=== PATIENT | female | born 1950 | race Caucasian/White ===

== ENCOUNTER → 2016-10-14 | Outpatient (CLI) | payer BC ==
[~2016-10-14] MED LIST: ALLDSR60 PO; ASPEC81 PO; ASPI81TA28 PO; ATV/1 PO; ATV1 PO; CHOL100010 PO; CHOL1TAB42 PO; CYCL0.05 OP; CYCL0.052 OP; FEXO1TAB46 PO; FLNIN NAE; FLUO20CA35 PO; FLUO40CA8 PO; FLUT0.15 NAE; GLUC1CAP32 PO; INDSR/60 PO; LISI-725 PO; METH750T PO; MONT1TAB3 PO; MULT-506 PO; MULT-663 PO; OXYC1TAB3 PO; PANT40TA PO; PROP60CA5 PO; PRZC/10 PO; RIZA10TA19 PO; RXC5 PO; SUMA6KIT SQ; TOPI200T14 PO; TOPI25TA99 PO; [UNRECOGNIZED DRUG - CODE] PO
[2016-10-14 14:54] LABS: ESTIMATED AVERAGE GLUCOSE 117 mg/dl; HA1C FLAG Normal (Normal)
[2016-10-14 14:57] LABS: ALT/SGPT 27 U/L (12-78); AST/SGOT 13 U/L (15-37); BLOOD UREA NITROGEN 17 mg/dl (7-18); BUN/CREATININE RATIO 17.4 (10-20); CALCIUM 9.2 mg/dl (8.5-10.1); CARBON DIOXIDE 24 mmol/L (21-32); CHLORIDE 107 mmol/L (98-107); CREATININE 0.98 mg/dl (0.60-1.20); GLUCOSE 105 mg/dl (70-99); POTASSIUM 4.1 mmol/L (3.5-5.1); SODIUM 141 mmol/L (136-145)
[2016-10-14 15:00] LABS: ALKALINE PHOSPHATASE 93 U/L (45-117); CHOLESTEROL 212 mg/dl (0-200); CHOLESTEROL/HDL RATIO 2.8; HDL CHOLESTEROL 76 mg/dl; LDL CHOLESTEROL CALCULATED 112 mg/dl; TRIGLYCERIDES 120 mg/dl (0-150); VERY LOW DENSITY LIPOPROT CALC 24 mg/dl
== END | disposition home or self-care (01) ==
LOC: C.LAB1850 12:34
PROVIDERS: ATTEND Family Medicine
DX: E55.9 Vitamin D deficiency, unspecified (principal); E78.5 Hyperlipidemia, unspecified; R73.9 Hyperglycemia, unspecified; M26.609 Unspecified temporomandibular joint disorder, unspecified side

== ENCOUNTER → 2016-11-01 | Outpatient (CLI) | payer BC ==
--- NOTE | 2016-11-01 13:06 | DIAGNOSTIC IMAGING REPORT ---
RIGHT LOWER EXTREMITY VENOUS DOPPLER CLINICAL HISTORY: Right calf pain. COMPARISON STUDY: Right lower extremity venous Doppler September 08, 2012. TECHNIQUE: Sonography of the deep venous system of the right lower extremity was performed. Compression and augmentation were evaluated. FINDINGS: The right common femoral, superficial femoral and popliteal veins were compressible. Augmentation was normal. Flow was shown within the deep calf vessels. IMPRESSION: No evidence of deep venous thrombus within the right lower extremity. Electronically signed by: Abbe Jaime M.D. 11/01/2016 1:05 PM Dictated Date/Time: 11/01/2016 1:05 PM
== END | disposition home or self-care (01) ==
LOC: C.ULTR 12:06
PROVIDERS: ATTEND Family Medicine
DX: M79.669 Pain in unspecified lower leg (principal)

== ENCOUNTER → 2017-05-07 | Outpatient (CLI) | payer BC ==
[~2017-05-07] MED LIST changes: -ALLDSR60 PO; -ASPEC81 PO; -ATV1 PO; -CHOL100010 PO; -CYCL0.05 OP; -FLNIN NAE; -FLUO20CA35 PO; -PANT40TA PO; -PROP60CA5 PO; -PRZC/10 PO; -RXC5 PO; -[UNRECOGNIZED DRUG - CODE] PO
[2017-05-07 13:56] LABS: ALT/SGPT 21 U/L (12-78); BLOOD UREA NITROGEN 12 mg/dl (7-18); BUN/CREATININE RATIO 12.7 (10-20); CARBON DIOXIDE 25 mmol/L (21-32); CHLORIDE 111 mmol/L (98-107); CHOLESTEROL 204 mg/dl (0-200); CREATININE 0.95 mg/dl (0.60-1.20); GLUCOSE 100 mg/dl (70-99); POTASSIUM 3.9 mmol/L (3.5-5.1); SODIUM 142 mmol/L (136-145); TRIGLYCERIDES 106 mg/dl (0-150); VERY LOW DENSITY LIPOPROT CALC 21 mg/dl
[2017-05-07 13:59] LABS: ALB/GLOB RATIO 0.8 (0.9-2); ALKALINE PHOSPHATASE 96 U/L (45-117); AST/SGOT 9 U/L (15-37); CHOLESTEROL/HDL RATIO 3.3; HDL CHOLESTEROL 62 mg/dl; LDL CHOLESTEROL CALCULATED 121 mg/dl
== END | disposition home or self-care (01) ==
LOC: C.LAB1850 12:14
PROVIDERS: ATTEND Family Medicine
DX: G43.909 Migraine, unspecified, not intractable, without status migrainosus (principal); E55.9 Vitamin D deficiency, unspecified; I10 Essential (primary) hypertension; E78.5 Hyperlipidemia, unspecified; M26.609 Unspecified temporomandibular joint disorder, unspecified side

== ENCOUNTER → 2017-07-01 | Outpatient (CLI) | payer BC ==
[~2017-07-01] VITALS: Ht 160 cm; Wt 112.2 kg
[2017-07-01 14:12] VITALS: BP 109/88; PULSE 84; Ht 160 cm; Wt 112.2 kg
== END | disposition home or self-care (01) ==
LOC: C.NEUR 13:38
PROVIDERS: ATTEND Physician Assistant Medical
DX: G47.30 Sleep apnea, unspecified (principal); E66.9 Obesity, unspecified

== ENCOUNTER 2017-09-22 13:44 | Emergency (ER) | payer BC ==
[~2017-09-22] VITALS: Ht 160 cm; Wt 111.0 kg
[2017-09-22 13:46] VITALS: TEMP 36.5; Ht 160 cm; Wt 111.0 kg
[2017-09-22] MEDS ORDERED: MoRPHine SULFATE 10 MG/ML CARP/VIAL IM STA (14:25)
[2017-09-22] MEDS ORDERED: ONDANSETRON 4MG OD TAB PO ONE (14:30)
[2017-09-22] MEDS ORDERED: VENL150T33 PO (14:34)
[2017-09-22] MEDS ORDERED: TPM/50 PO (14:34)
[2017-09-22] MEDS ORDERED: EFFSR75 PO (14:42)
[2017-09-22] MEDS ORDERED: RED1CAP5 PO (14:42)
[2017-09-22] MEDS ORDERED: FEXO1TAB49 PO (14:57)
[2017-09-22] MEDS ORDERED: AZEL0.1S2 NAE (14:57)
--- NOTE | 2017-09-22 15:58 | DIAGNOSTIC IMAGING REPORT ---
R RIBS UNILATERAL WITH PA CHEST CLINICAL HISTORY: 67 years-old Female presenting with RIGHT RIB PAIN, FALL 2 DAYS AGO. TECHNIQUE: Frontal and oblique views of the right ribs as well as PA view of the chest were obtained. COMPARISON: Chest x-ray from 02/05/2017. FINDINGS: Cardiomediastinal silhouette normal. Mildly low lung volumes. 9 mm nodule in the left lung. Mild pleural thickening along the lateral right lung suggested. No large effusion or pneumothorax. Scoliotic curvature of the lower thoracic spine. No displaced right rib fracture. Cholecystectomy clips noted. IMPRESSION: 1. No displaced right rib fracture. 2. Suggestion of pleural thickening along the lateral right lung. This could represent small amount of extrapleural hematoma, asymmetrically prominent extrapleural fat, or trace pleural fluid. 3. 9 mm nodule in the left lung. Further evaluation with chest CT to be considered. The report will be called/faxed according to standard departmental protocol. Electronically signed by: Allan Escalante M.D. 09/22/2017 3:57 PM Dictated Date/Time: 09/22/2017 3:53 PM
--- NOTE | 2017-09-22 16:12 | EMERGENCY ROOM VISIT NOTE ---
ED Visit Note First contact with patient: 13:59 This Patient was discussed with the physician Barnworker Groom, Esther Moreno PA-C. The pertinent historical and physical exam findings were confirmed. I agree with the studies ordered and with the interpretations of these studies. I agree with the disposition and care plan.
[2017-09-22] MEDS ORDERED: OPTIRAY 320 IV PRN (16:30)
[2017-09-22 16:48] LABS: HEMATOCRIT 42.9 % (37-47); MEAN CELL VOLUME 87.7 fL (80-100); MEAN CORPUSCULAR HEMOGLOBIN 29.4 pg (25-34); MEAN CORPUSCULAR HGB CONC 33.6 g/dl (32-36); PLATELET COUNT 171 K/uL (130-400); RED BLOOD COUNT 4.89 M/uL (4.2-5.4); WHITE BLOOD COUNT 8.67 K/uL (4.8-10.8)
[2017-09-22 16:54] LABS: ISTAT CREATININE 0.8 mg/dl (0.6-1.3); ISTAT HEMOGLOBIN 14.6 g/dl (12.0-16.0); ISTAT IONIZED CALCIUM 1.21 mmol/l (1.12-1.32)
--- NOTE | 2017-09-22 17:13 | DIAGNOSTIC IMAGING REPORT ---
ABD/PELVIS IV AND ORAL CONT CLINICAL HISTORY: 67 years-old Female presenting with RIGHT RIB PAIN, ABNORMAL RIB/CXR. TECHNIQUE: Multidetector CT of the abdomen and pelvis was performed after the administration of oral and intravenous contrast. IV contrast: 118 mL of Optiray 320. A dose lowering technique was used consistent with the principles of ALARA (as low as reasonably achievable). COMPARISON: 03/27/2015. CT DOSE (mGy.cm): The estimated cumulative dose is 2511.80. FINDINGS: Cork Compounder topogram: Cholecystectomy clips. Lung bases: Multiple nodular opacities and dependent reticulation. Calcified granuloma also noted. Scarring or atelectasis noted in the right middle lobe and lingula. Normal heart size. No pericardial or pleural effusion. Right rib fracture noted. No extrapleural hematoma. Liver: Normal morphology. No liver lesion. Patent hepatic vasculature. Biliary: Mild biliary ductal prominence likely a reservoir effect in the post cholecystectomy state. Gallbladder surgically absent. Pancreas: Moderate parenchymal atrophy. Spleen: Normal. Adrenal glands: Normal. Kidneys and ureters: Punctate nonobstructing hyperdensity at the inferior pole of the right kidney may suggest diminutive calculi. Bladder: Mild circumferential bladder wall thickening suggested. Pelvic organs: Uterus and ovaries normal. Bowel: Moderate stool burden in the right colon. No bowel obstruction. Duodenal diverticulum suspected at the level of the pancreatic head. Peritoneal cavity: No free fluid or intraperitoneal gas. Lymph nodes: No enlarged lymph nodes in the abdomen or pelvis. Vasculature: Atherosclerosis of the normal caliber abdominal aorta. IVC patent. Abdominal wall: Diastasis of the rectus abdominis. Musculoskeletal: Degenerative changes of the spine. IMPRESSION: 1. No acute intra-abdominal pathology. 2. Nodular and reticular dependent opacities at the lung bases may represent postinfectious/postinflammatory change. Ongoing infectious bronchiolitis is difficult to exclude especially given the limited field of view of the lungs on this abdominal CT. 3. Right rib fracture. No extrapleural hematoma. 4. Moderate stool burden. Electronically signed by: Allan Escalante M.D. 09/22/2017 5:12 PM Dictated Date/Time: 09/22/2017 5:04 PM
--- NOTE | 2017-09-22 17:29 | DIAGNOSTIC IMAGING REPORT ---
(CHEST) THORAX WITH CLINICAL HISTORY: 67 years-old Female presenting with RIGHT RIB PAIN, ABNORMAL RIB/CXR. TECHNIQUE: Multidetector CT imaging of the chest was performed after the administration of intravenous contrast. IV contrast: 118 mL of Optiray 320. A dose lowering technique was used consistent with the principles of ALARA (as low as reasonably achievable). COMPARISON: Chest x-ray performed on 02/05/2017. CT DOSE (mGy.cm): The estimated cumulative dose is 2511.80 mGy.cm. FINDINGS: Employee Relations Director topogram: Cholecystectomy clips noted. On soft tissue windows, normal thyroid and thoracic inlet. Prominent mediastinal lymph nodes in the precarinal region measuring up to 8 mm in the short axis. Few small hilar lymph nodes noted bilaterally. Atherosclerosis of the aorta. Normal heart size. No pericardial or pleural effusion. Reflux of oral contrast into the esophagus noted. Cholecystectomy clips. On lung windows, calcified granulomas noted. Bandlike opacities in the right middle lobe, lingula, and left lower lobe likely atelectasis or scarring. Limited nodular and reticular subpleural opacities in a dependent distribution primarily involving the lower lobes. Mosaic attenuation may suggest small airways disease. Large airways patent allowing for the phase of respiration. On bone windows, degenerative changes of the spine. Minimally displaced acute fractures of the right fifth and sixth ribs. Mild subjacent swelling of the extrapleural fat. No gross evidence of a neck show pleural hematoma. Osteopenia. IMPRESSION: 1. Minimally displaced fractures of the right fifth and sixth ribs. 2. Dependent nodular and reticular subpleural opacities could suggest chronic aspiration or other postinfectious/postinflammatory changes. 3. Mildly prominent mediastinal lymph nodes may be reactive. Electronically signed by: Allan Escalante M.D. 09/22/2017 5:27 PM Dictated Date/Time: 09/22/2017 5:20 PM
[2017-09-22] MEDS ORDERED: OXYC1TAB3 PO (17:50)
--- NOTE | 2017-09-22 17:51 | EMERGENCY ROOM VISIT NOTE ---
ED Visit Note First contact with patient: 13:59 CHIEF COMPLAINT: Right rib injury after a fall 2 days ago HISTORY OF PRESENT ILLNESS: Patient is a 67-year-old white female who presents emergency Department accompanied by her significant other for evaluation of right rib pain after a fall 2 days ago. Patient reports that 2 days ago, she went out on her deck to feed her,. She is not exactly sure what happened, but states that she remembers having this sensation that she was going to fall and that she could "not to anything to stop it." She reports that she fell off the deck, landing on her right side. There was no loss of consciousness. She was able to pull herself up by holding onto her vehicle. She notes right anterior lateral rib pain, that is worse with coughing, deep breathing, sneezing, changing positions, or movement of her right shoulder. She tried taking ibuprofen, which helped slightly with her pain. She presently rates her discomfort a 10/10. She reports chronic headaches, and denies any changes in this. She denies any lightheadedness or dizziness. She has chronic issues with her balance related to a remote CVA, and denies any changes in this. REVIEW OF SYSTEMS: Review of systems as per HPI. All other systems reviewed were negative. 10 systems reviewed. PMH: Electronic medical records are reviewed and summarized as above/below. See Problem List. SOCIAL HISTORY: Patient lives at home with her significant other. Nonsmoker. PHYSICAL EXAM: Vital Signs: Reviewed Nurse's notes. GENERAL: Patient is an obese 67-year-old white female who is awake and alert and in mild distress due to her right rib pain. Oxygen saturation is 91% on room air. HEENT: Head - normocephalic and atraumatic. Pupils are equal, round, and reactive to light. Extraocular eye muscles are intact and sclera are anicteric. Ears - bilaterally patent canals with no evidence of hemotympanum. Mouth - moist buccal mucosa with no trauma to the teeth or signs of malocclusion. Neck: The neck is supple and there is no pain to palpation over the posterior cervical spine and no obvious step-offs or deformities. There is no JVD or tracheal deviation. Chest: There are no signs of deformities, contusions or abrasions to the chest wall. There is no obvious crepitus or paradoxical chest rise. She has tenderness to palpation to the right ribs, laterally extending to the midclavicular line. Sternum is nontender. Heart: Regular rate, and regular rhythm. Lungs: Breath sounds equal and clear to auscultation without wheezes, rales, or rhonchi heard. Abdomen: Bowel sounds are present. Well-healed surgical scars are noted. Abdomen is soft, nontender and nondistended. No guarding or rebound. She does not have any pain in the right upper quadrant or right lower quadrant. No CVA tenderness. Extremities: No obvious trauma, deformities, contusions, or edema. There are easily palpable peripheral pulses. Examination of the right shoulder does not demonstrate any deformity, no ecchymosis or abrasions. She has full internal and external range of motion, clavicle and acromion the joint are nontender. Neuro: The patient is awake and alert and easily able to follow commands. Muscle strength is 5 out of 5 in all 4 extremities. Otherwise, neuro exam is unremarkable. Back: The entire thoracic, lumbar, and sacral spine were palpated. No discomfort over the thoracic spine and lumbar spine. There are no obvious step- offs or deformities noted. There are no obvious signs of trauma such as contusions abrasions penetrations noted to the back. EMERGENCY DEPARTMENT COURSE: The patient was seen and assessed as above. Pain management options were discussed with her. She requested something that would "work quickly," and was agreeable to IM medications. She was given Zofran 4 mg ODT and morphine 10 mg IM. She was placed on continuous pulse ox monitoring. Chest with right rib x-rays were obtained. Patient was reviewed with attending physician who also independently evaluated her. Chest and rib series did not demonstrate any placed right rib fractures, there was suggestion of pleural thickening along the lateral right lung which could be dental detail representative of an extrapleural hematoma, prominent extrapleural flat or trace pleural fluid. X- ray findings were reviewed with attending physician, and trauma CT scan of the chest, abdomen and pelvis was ordered to evaluate x-ray findings in further detail. IV lock was initiated. I-STAT labs were obtained, H&H was 14.6 and 43 chemistries are unremarkable and renal function was normal. Chest CT demonstrated minimally displaced fractures of the right fifth and sixth ribs, with some adjacent swelling of the extrapleural fat. It was no evidence for extrapleural hematoma. Deep ended nodular and reticular subpleural opacities could suggest chronic aspiration or other postinfectious/ post inflammatory changes. Reactive mildly prominent mediastinal lymph nodes were noted. Abdominal and pelvic CT did not note any acute intra-abdominal pathology. All laboratory and diagnostic imaging studies were reviewed with attending physician, and discussed with the patient and her significant other at length. The patient did require some supplemental oxygen after the IM morphine, but was otherwise able to maintain her sats on room air, in the low 90s. She was ambulatory independently to the bathroom. She did report that her pain had improved with the morphine and rated her pain a 4/10 at discharge. She was issued an incentive spirometer and conservative care measures were discussed regarding her rib fractures. Significant other does report that they have a pulse ox monitor at home. Patient was encouraged to follow up with her primary care physician next week for recheck. Differential diagnoses entertained included rib contusion, chest wall injury, rib fracture, sternal fracture, pulmonary contusion, pneumothorax, hepatic or retroperitoneal injury, among others. Medication reconciliation: I attest that I have personally reviewed the patient' s current medication list. Blood pressure screening: Patient was found to have a slightly elevated blood pressure due to circumstances. I do not believe that the patient requires hypertension monitoring. Patient was reviewed in the [facility] Prescription Drug Monitoring Program, and there were no red flags noted. R RIBS UNILATERAL WITH PA CHEST CLINICAL HISTORY: 67 years-old Female presenting with RIGHT RIB PAIN, FALL 2 DAYS AGO. TECHNIQUE: Frontal and oblique views of the right ribs as well as PA view of the chest were obtained. COMPARISON: Chest x-ray from 02/05/2017. FINDINGS: Cardiomediastinal silhouette normal. Mildly low lung volumes. 9 mm nodule in the left lung. Mild pleural thickening along the lateral right lung suggested. No large effusion or pneumothorax. Scoliotic curvature of the lower thoracic spine. No displaced right rib fracture. Cholecystectomy clips noted. IMPRESSION: 1. No displaced right rib fracture. 2. Suggestion of pleural thickening along the lateral right lung. This could represent small amount of extrapleural hematoma, asymmetrically prominent extrapleural fat, or trace pleural fluid. 3. 9 mm nodule in the left lung. Further evaluation with chest CT to be considered. The report will be called/faxed according to standard departmental protocol. (CHEST) THORAX WITH CLINICAL HISTORY: 67 years-old Female presenting with RIGHT RIB PAIN, ABNORMAL RIB/CXR. TECHNIQUE: Multidetector CT imaging of the chest was performed after the administration of intravenous contrast. IV contrast: 118 mL of Optiray 320. A dose lowering technique was used consistent with the principles of ALARA (as low as reasonably achievable). COMPARISON: Chest x-ray performed on 02/05/2017. CT DOSE (mGy.cm): The estimated cumulative dose is 2511.80 mGy.cm. FINDINGS: Interactive Video Technician topogram: Cholecystectomy clips noted. On soft tissue windows, normal thyroid and thoracic inlet. Prominent mediastinal lymph nodes in the precarinal region measuring up to 8 mm in the short axis. Few small hilar lymph nodes noted bilaterally. Atherosclerosis of the aorta. Normal heart size. No pericardial or pleural effusion. Reflux of oral contrast into the esophagus noted. Cholecystectomy clips. On lung windows, calcified granulomas noted. Bandlike opacities in the right middle lobe, lingula, and left lower lobe likely atelectasis or scarring. Limited nodular and reticular subpleural opacities in a dependent distribution primarily involving the lower lobes. Mosaic attenuation may suggest small airways disease. Large airways patent allowing for the phase of respiration. On bone windows, degenerative changes of the spine. Minimally displaced acute fractures of the right fifth and sixth ribs. Mild subjacent swelling of the extrapleural fat. No gross evidence of a neck show pleural hematoma. Osteopenia. IMPRESSION: 1. Minimally displaced fractures of the right fifth and sixth ribs. 2. Dependent nodular and reticular subpleural opacities could suggest chronic aspiration or other postinfectious/postinflammatory changes. 3. Mildly prominent mediastinal lymph nodes may be reactive. ABD/PELVIS IV AND ORAL CONT CLINICAL HISTORY: 67 years-old Female presenting with RIGHT RIB PAIN, ABNORMAL RIB/CXR. TECHNIQUE: Multidetector CT of the abdomen and pelvis was performed after the administration of oral and intravenous contrast. IV contrast: 118 mL of Optiray 320. A dose lowering technique was used consistent with the principles of ALARA (as low as reasonably achievable). COMPARISON: 03/27/2015. CT DOSE (mGy.cm): The estimated cumulative dose is 2511.80. FINDINGS: Interactive Video Technician topogram: Cholecystectomy clips. Lung bases: Multiple nodular opacities and dependent reticulation. Calcified granuloma also noted. Scarring or atelectasis noted in the right middle lobe and lingula. Normal heart size. No pericardial or pleural effusion. Right rib fracture noted. No extrapleural hematoma. Liver: Normal morphology. No liver lesion. Patent hepatic vasculature. Biliary: Mild biliary ductal prominence likely a reservoir effect in the post cholecystectomy state. Gallbladder surgically absent. Pancreas: Moderate parenchymal atrophy. Spleen: Normal. Adrenal glands: Normal. Kidneys and ureters: Punctate nonobstructing hyperdensity at the inferior pole of the right kidney may suggest diminutive calculi. Bladder: Mild circumferential bladder wall thickening suggested. Pelvic organs: Uterus and ovaries normal. Bowel: Moderate stool burden in the right colon. No bowel obstruction. Duodenal diverticulum suspected at the level of the pancreatic head. Peritoneal cavity: No free fluid or intraperitoneal gas. Lymph nodes: No enlarged lymph nodes in the abdomen or pelvis. Vasculature: Atherosclerosis of the normal caliber abdominal aorta. IVC patent. Abdominal wall: Diastasis of the rectus abdominis. Musculoskeletal: Degenerative changes of the spine. IMPRESSION: 1. No acute intra-abdominal pathology. 2. Nodular and reticular dependent opacities at the lung bases may represent postinfectious/postinflammatory change. Ongoing infectious bronchiolitis is difficult to exclude especially given the limited field of view of the lungs on this abdominal CT. 3. Right rib fracture. No extrapleural hematoma. 4. Moderate stool burden. 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 (13) Osteoporosis Nos Status: Chronic (14) Precordial chest pain Status: Resolved (15) Sleep Apnea, Unspecified Status: Chronic (16) Staphylococcal infectious disease Status: Resolved Surgical Problems: (1) History of appendectomy Status: Resolved (2) Hx of cholecystectomy Status: Resolved Current/Historical Medications Scheduled Aspirin (Aspirin Ec), 81 MG PO DAILY Azelastine HCl (Azelastine Hydrochloride), 1-2 SPRAYS MARY BID Cholecalciferol (Vitamin D), 5,000 UNITS PO DAILY Cyclosporine (Ophth) (Restasis), 1 DROP OP BID Fexofenadine Hcl (Hien), 180 MG PO DAILY Fluoxetine Hcl (Prozac), 60 MG PO AM Fluticasone Propionate (Nasal) (Flonase Allergy Relief), 1 SPRAY MARY BID [id number] C-Mn-Ginge (Glucosamine/Msm Complex/C), 3 CAPSULE PO DAILY Lisinopril (Zestril), 20 MG PO DAILY Lorazepam (Ativan), 1 MG PO Q6H Methocarbamol (Robaxin), 750 MG PO BID Montelukast Sodium (Singulair), 10 MG PO DAILY Multiple Minerals W/ Vitamins (Citracal Plus), 4 TAB PO DAILY Multivitamin (Multivitamin), 1 TAB PO DAILY Propranolol Hcl (Propranolol ER), 60 MG PO DAILY Red Yeast Rice Extract (Red Yeast Rice), 2 CAP PO DAILY Rizatriptan Benzoate (Maxalt-Stage Electrician), 10 MG PO DIRECTED Sumatriptan Succinate (Imitrex Statdose), 1 DOSE SQ DIRECTED Topiramate (Topamax), 200 MG PO BID Topiramate (Topamax), 50 MG PO BID Venlafaxine Hcl (Venlafaxine Hcl Er), 150 MG PO DAILY Venlafaxine Hcl (Effexor Extended Rel), 75 MG PO DAILY Scheduled PRN Fexofenadine Hcl (Hien Allergy), 180 MG PO DAILY PRN for ALLERGIES Oxycodone Immediate Rel Tab (Roxicodone Ir), 1-2 TAB PO Q4H PRN for Severe Pain Oxycodone Ir (Roxicodone Ir), 5 MG PO Q4H PRN for Migraine Allergies Coded Allergies: Adhesives (Verified Allergy, Unknown, skin tears, 09/22/17) Erythromycin (Verified Allergy, Unknown, 09/22/17) Pentazocine (Verified Allergy, Unknown, 09/22/17) Sulfa Antibiotics (Verified Allergy, Unknown, Unknown, 09/22/17) Tramadol (Verified Adverse Reaction, Severe, SEVERE HEADACHE, 09/22/17) Dextromethorphan (Verified Adverse Reaction, Mild, n/v, 09/22/17) [employer] Indomethacin (Verified Adverse Reaction, Mild, VOMITING/RASH, 09/22/17) Vital Signs Date Time Temp Pulse Resp B/P (MAP) Pulse Ox O2 Delivery O2 Flow Rate FiO2 09/22/17 17:55 61 20 109/68 92 Room Air 09/22/17 16:11 62 20 118/69 94 Room Air 09/22/17 14:40 Room Air 09/22/17 13:46 36.5 57 18 150/80 91 Room Air Laboratory Results 09/22/17 16:34 Test 09/22/17 16:34 09/22/17 16:42 Red Blood Count 4.89 M/uL (4.2-5.4) Mean Corpuscular Volume 87.7 fL (80-100) Mean Corpuscular Hemoglobin 29.4 pg (25-34) Mean Corpuscular Hemoglobin Concent 33.6 g/dl (32-36) RDW Standard Deviation 43.4 fL (36.4-46.3) RDW Coefficient of Variation 13.5 % (11.5-14.5) Mean Platelet Volume 12.0 fL (7.4-10.4) Bedside Hemoglobin 14.6 g/dl (12.0-16.0) Bedside Hematocrit 43 % (37-47) Bedside Sodium 140 mEq/L (135-144) Bedside Potassium 3.8 mEq/L (3.3-5.0) Bedside Chloride 106 mEq/L (101-112) Bedside Total CO2 23 mEq/l (24-31) Anion Gap 15.0 mmol/L (16-25) Bedside Blood Urea Nitrogen 12 mg/dl (7-18) Bedside Creatinine 0.8 mg/dl (0.6-1.3) Bedside Glucose (other) 105 mg/dl (70-99) Bedside Ionized Calcium (Jr) 1.21 mmol/l (1.12-1.32) Medications Administered Medications (Trade) Dose Ordered Sig/Yvonne Route Start Time Stop Time Status Last Admin Dose Admin Ondansetron HCl (Zofran Odt) 4 mg ONE ONCE PO 09/22/17 14:30 09/22/17 14:31 DC 09/22/17 14:44 4 MG Morphine Sulfate (MoRPHine SULFATE INJ) 10 mg NOW STAT IM 09/22/17 14:25 09/22/17 14:26 DC 09/22/17 14:45 10 MG Departure Information Impression Primary Impression: Right rib fracture Prescriptions Oxycodone Immediate Rel Tab (ROXICODONE IR) 5 Mg Tab 1-2 TAB PO Q4H Y for Severe Pain, #30 TAB For Initial Treatment Prov: Ginette Moreno PA 09/22/17 Referrals Katie Tolbert M.D. (PCP) Patient Instructions My [facility] Additional Instructions DO NOT drive, drink alcohol, operate machinery, or perform dangerous activities today. You were given medications in the ER that can affect your ability to safely function or operate a vehicle. Oxycodone (OxyIR) 5mg: Take 1-2 pills every four hours for breakthrough pain. Avoid alcohol, operating machinery or dangerous equipment, working on ladders or roofs, DRIVING, or situations where being under the influence may be dangerous. It is recommended to use an [id number] stool softener such as Colace, 100mg twice daily while taking this medication to avoid constipation. Apply ice to ribs for swelling and pain. Incentive spirometer every hour as instructed. Limit activities until ribs heal. Ibuprofen(Motrin, Advil) may be used for fever or pain. Use 600mg every six hours as needed. Take with food. Avoid using more than 2400mg in a 24 hour period. Do not use 2400mg per day for more than three consecutive days without physician direction. Prolonged inappropriate use can lead to stomach upset or ulcers. (AND/OR) Acetaminophen(Tylenol) may be used for fever or pain. Use 1000mg every six hours as needed. Avoid using more than 3000mg in a 24 hour period. Return to the emergency department for worsening pain, difficulty breathing, coughing up blood, shortness of breath fevers, vomiting, worsening symptoms or as needed. Follow-up with your family physician next week for recheck.
[2017-09-22 17:55] VITALS: BP 109/68; PULSE 61; O2SAT 92
== END 2017-09-22 18:13 | disposition home or self-care (01) ==
LOC: C.EDB 13:45
DX: S22.41XA Multiple fractures of ribs, right side, initial encounter for closed fracture (principal); W19.XXXA Unspecified fall, initial encounter; R91.1 Solitary pulmonary nodule; E78.5 Hyperlipidemia, unspecified; I10 Essential (primary) hypertension; M81.0 Age-related osteoporosis without current pathological fracture; F41.9 Anxiety disorder, unspecified; F32.9 Major depressive disorder, single episode, unspecified; G47.39 Other sleep apnea; Z86.73 Personal history of transient ischemic attack (TIA), and cerebral infarction without residual deficits; Z86.718 Personal history of other venous thrombosis and embolism; Z90.49 Acquired absence of other specified parts of digestive tract; Z98.890 Other specified postprocedural states; Z79.82 Long term (current) use of aspirin; Z79.899 Other long term (current) drug therapy; Z88.2 Allergy status to sulfonamides; Z88.3 Allergy status to other anti-infective agents; Z88.8 Allergy status to other drugs, medicaments and biological substances

== ENCOUNTER → 2017-11-20 | Outpatient (CLI) | payer BC ==
[~2017-11-20] MED LIST changes: +AZEL0.1S2 NAE; +EFFSR75 PO; +FEXO1TAB49 PO; +RED1CAP5 PO; -TOPI25TA99 PO; +TPM/50 PO; +VENL150T33 PO
[2017-11-20 13:13] LABS: ALBUMIN 3.3 gm/dl (3.4-5.0); ALT/SGPT 21 U/L (12-78); BLOOD UREA NITROGEN 13 mg/dl (7-18); CALCIUM 9.1 mg/dl (8.5-10.1); CARBON DIOXIDE 26 mmol/L (21-32); CHOLESTEROL 195 mg/dl (0-200); CREATININE 0.86 mg/dl (0.60-1.20); GLUCOSE 103 mg/dl (70-99); POTASSIUM 3.8 mmol/L (3.5-5.1); SODIUM 140 mmol/L (136-145)
[2017-11-20 13:23] LABS: ALKALINE PHOSPHATASE 100 U/L (45-117); AST/SGOT 13 U/L (15-37); LDL CHOLESTEROL CALCULATED 114 mg/dl; TOTAL PROTEIN 6.8 gm/dl (6.4-8.2)
== END | disposition home or self-care (01) ==
LOC: C.LABPVFM 08:55
PROVIDERS: ATTEND Family Medicine
DX: E78.5 Hyperlipidemia, unspecified (principal); F41.8 Other specified anxiety disorders; R73.9 Hyperglycemia, unspecified

== ENCOUNTER → 2018-01-12 | Day surgery (SDC) | payer BC ==
[2017-12-26 10:41] VITALS: Ht 157.5 cm; Wt 113.2 kg
[~2018-01-12] VITALS: Ht 157.5 cm; Wt 113.2 kg
[~2018-01-12] MED LIST changes: +ASPCH81X PO; -ASPI81TA28 PO; -ATV/1 PO; +AZEL0.056 NAE; -AZEL0.1S2 NAE; -CHOL1TAB42 PO; +CHOL1TAB46 PO; -CYCL0.052 OP; +CYCL0.052 OPB; -EFFSR75 PO; -FEXO1TAB46 PO; -FLUO40CA8 PO; -GLUC1CAP32 PO; -INDSR/60 PO; +LIDOCAINE HCL 2% 2 ML VIAL (20MG/ML) ONE; -LISI-725 PO; +LISI20TA3 PO; +LORA-741 PO; +METH-307 PO; -METH750T PO; -MULT-506 PO; -MULT-663 PO; +NORT25CA PO; +NYST100016 EXT; +OMEGCAP2 PO; +PROM25TA9 PO; +PROP1TAB PO; +PROPOFOL IV EMULSION 10 MG/ML 20 ML VIAL IV ONE; -RED1CAP5 PO; +REDCAP2 PO; +SODIUM CHLORIDE 0.9% 500ML 500 ML IV ONE; +TOPI50TA16 PO; -TPM/50 PO; -VENL150T33 PO
--- NOTE | 2018-01-12 13:35 | Endo History and Physical ---
History & Physical Date of Service: Jan 12, 2018. Chief Complaint: Screening Referring Physician: Dr. Tolbert History of Present Illness 68 yo CF who presents for screening colonoscopy. Past Medical History Anxiety, Sleep Apnea, Hypertension, Depression Past Surgical History Hx Cardiac Surgery: Yes (HEART CATH/NO STENTS) Hx Internal Defibrillator: No Hx Pacemaker: No Hx Abdominal Surgery: Yes (APPY,TUBAL LIGATION, GRISELDA, EXPLORATORY LAP) Hx of Implantable Prosthesis: No Hx Post-Op Nausea and Vomiting: No Hx Cancer Surgery: No Hx Thoracic Surgery: No Hx Orthopedic: Yes (MULTI. RT ANKLE/FUSIONS SURGERIES (I&D), RT/LEFT CTR) Hx Urinary Tract Surgery: No Family History Polyp Social History Smoking Status: Former Smoker Hx Substance Use: No Hx Alcohol Use: Yes (RARELY) Allergies Coded Allergies: Adhesives (Verified Allergy, Unknown, skin tears, 12/26/17) Erythromycin (Verified Allergy, Unknown, HIVES, 12/26/17) Sulfa Antibiotics (Verified Allergy, Unknown, VOMITTING/ITCHING, 12/26/17) Tramadol (Verified Adverse Reaction, Severe, SEVERE HEADACHE, 12/26/17) Dextromethorphan (Verified Adverse Reaction, Mild, n/v, 12/26/17) [facility] Indomethacin (Verified Adverse Reaction, Mild, VOMITING/RASH, 12/26/17) Uncoded Allergies: TALWIN (Allergy, Unknown, HALLUCINATIONS, 12/26/17) Current Medications Reported Home Medications Medications Dose Route/Sig Max Daily Dose Days Date Category Aspirin Chewable (Aspirin) 81 Mg Chew 81 Mg PO HS 12/26/17 Reported Vitamin D3 (Cholecalciferol) 5,000 Unit Tab 1 Tab PO HS 12/26/17 Reported Topamax (Topiramate) 200 Mg Tab 200 Mg PO BID 12/26/17 Reported Topamax (Topiramate) 50 Mg Tab 50 Mg PO BID 12/26/17 Reported Restasis (Cyclosporine (Ophth)) 0.05 % Emu 1 Drop OPB BID 12/26/17 Reported Red Yeast Rice (Red Yeast Rice Extract) 600 Mg Cap 1 Cap PO HS 12/26/17 Reported Phenergan (Promethazine HCl) 25 Mg Tab 25 Mg PO Q4H PRN 12/26/17 Reported Inderal (Propranolol HCl) 60 Mg Tab 60 Mg PO HS 12/26/17 Reported Roxicodone Ir (Oxycodone HCl) 5 Mg Tab 5 Mg PO Q6H PRN 12/26/17 Reported Fish Oil ([place]-3 Fatty Acids) 1 Cap Cap 1 Cap PO HS 12/26/17 Reported Pamelor (Nortriptyline HCl) 25 Mg Cap 2 Cap PO QPM 12/26/17 Reported Singulair (Montelukast Sodium) 10 Mg Tab 10 Mg PO QPM 12/26/17 Reported Robaxin (Methocarbamol) 750 Mg Tab 750 Mg PO BID 12/26/17 Reported Ativan (Lorazepam) 0.5 Mg Tab 0.5 Mg PO TID PRN 12/26/17 Reported Prinivil (Lisinopril) 20 Mg Tab 20 Mg PO QPM 12/26/17 Reported Azelastine HCl 0.15 % Spr 1 [place] MARY HS 12/26/17 Reported Hien Allergy (Fexofenadine Hcl) 180 Mg Tab 1 Tab PO DAILY PRN 12/26/17 Reported Nyamyc (Nystatin (Topical)) 100,000 Unit/Gm Pow 1 Dose EXT DIRECTED PRN 12/26/17 Reported Flonase Allergy Relief (Fluticasone Propionate (Nasal)) 50 Mcg/Act Spr 1 [place] MARY BID 02/05/17 Reported Imitrex Statdose (Sumatriptan Succinate) 6 Mg/0.5 Ml Inj 1 Dose SQ DIRECTED 03/27/15 Reported Maxalt-Office Manager (Rizatriptan Benzoate) 10 Mg Tab 10 Mg PO DIRECTED 03/27/15 Reported Vital Signs Weight (Kilograms): 113.18 Height (Feet): 5 Height (Inches): 2 Physical Exam General Appearance: WD/WN, no apparent distress Respiratory/Chest: Auscultation: breath sounds normal Cardiovascular: Heart Auscultation: RRR Abdomen: Bowel Sounds: normal Inspection & Palpation: soft, non-distended, no tenderness, guarding & rebound Assessment and Plan Assessment: 68 yo CF who presents for screening colonoscopy. Plan: Proceed with colonoscopy.
--- NOTE | 2018-01-12 14:26 | Discharge Instructions ---
Endoscopy Patient Instructions Date / Procedure(s) Performed Jan 12, 2018. Colonoscopy Allergy Information Coded Allergies: Adhesives (Verified Allergy, Unknown, skin tears, 01/12/18) Erythromycin (Verified Allergy, Unknown, HIVES, 01/12/18) Sulfa Antibiotics (Verified Allergy, Unknown, VOMITTING/ITCHING, 01/12/18) Tramadol (Verified Adverse Reaction, Severe, SEVERE HEADACHE, 01/12/18) Dextromethorphan (Verified Adverse Reaction, Mild, n/v, 01/12/18) [facility] Indomethacin (Verified Adverse Reaction, Mild, VOMITING/RASH, 01/12/18) Uncoded Allergies: TALWIN (Allergy, Unknown, HALLUCINATIONS, 12/26/17) Discharge Date / Findings Jan 12, 2018. Internal hemorrhoids Medication Instructions Stopped Medication(s): 81mg Aspirin last taken on 01/11/18 OK to resume all medications today as prescribed Reported Home Medications Medications Dose Route/Sig Max Daily Dose Days Date Category Aspirin Chewable (Aspirin) 81 Mg Chew 81 Mg PO HS 12/26/17 Reported Vitamin D3 (Cholecalciferol) 5,000 Unit Tab 1 Tab PO HS 12/26/17 Reported Topamax (Topiramate) 200 Mg Tab 200 Mg PO BID 12/26/17 Reported Topamax (Topiramate) 50 Mg Tab 50 Mg PO BID 12/26/17 Reported Restasis (Cyclosporine (Ophth)) 0.05 % Emu 1 Drop OPB BID 12/26/17 Reported Red Yeast Rice (Red Yeast Rice Extract) 600 Mg Cap 1 Cap PO HS 12/26/17 Reported Phenergan (Promethazine HCl) 25 Mg Tab 25 Mg PO Q4H PRN 12/26/17 Reported Inderal (Propranolol HCl) 60 Mg Tab 60 Mg PO HS 12/26/17 Reported Fish Oil ([place]-3 Fatty Acids) 1 Cap Cap 1 Cap PO HS 12/26/17 Reported Pamelor (Nortriptyline HCl) 25 Mg Cap 2 Cap PO QPM 12/26/17 Reported Singulair (Montelukast Sodium) 10 Mg Tab 10 Mg PO QPM 12/26/17 Reported Robaxin (Methocarbamol) 750 Mg Tab 750 Mg PO BID 12/26/17 Reported Ativan (Lorazepam) 0.5 Mg Tab 0.5 Mg PO TID PRN 12/26/17 Reported Prinivil (Lisinopril) 20 Mg Tab 20 Mg PO QPM 12/26/17 Reported Azelastine HCl 0.15 % Spr 1 [place] MARY HS 12/26/17 Reported Hien Allergy (Fexofenadine Hcl) 180 Mg Tab 1 Tab PO DAILY PRN 12/26/17 Reported Nyamyc (Nystatin (Topical)) 100,000 Unit/Gm Pow 1 Dose EXT DIRECTED PRN 12/26/17 Reported Flonase Allergy Relief (Fluticasone Propionate (Nasal)) 50 Mcg/Act Spr 1 [place] MARY BID 02/05/17 Reported Imitrex Statdose (Sumatriptan Succinate) 6 Mg/0.5 Ml Inj 1 Dose SQ DIRECTED 03/27/15 Reported Maxalt-Defense Attorney (Rizatriptan Benzoate) 10 Mg Tab 10 Mg PO DIRECTED 03/27/15 Reported Provider Instructions Activity Restrictions - No exercising or heavy lifting for 24 hours. - Do not drink alcohol the day of the procedure. - Do not drive a car or operate machinery until the day after the procedure. - Do not make any important decisions or sign important papers in 24 hours after the procedure. Following Day: - Return to full activity which may include returning to work/school. Diet Start your diet with liquids and light foods (jello, soup, juice, toast). Then eat your usual diet if not nauseated. Treatment For Common After Affects For mild abdominal pain, bloating, or excessive gas: - Rest - Eat lightly - Lie on right side Follow-Up Information Follow-up with Katie Tolbert as scheduled Anesthesia Information What You Should Know You have had a procedure that required some medicine to reduce anxiety and discomfort. This treatment is called moderate sedation. After receiving the treatment, you may be sleepy, but you will be able to breathe on your own. The effects of the treatment may last for several hours. Follow these instructions along with Activity/Diet recommendations noted above: * Do NOT do anything where dizziness or clumsiness would be dangerous. * Rest quietly at home today, then you can be up and about tomorrow. * Have a responsible person stay with you the rest of today. * You may have had an I.V. today. If so, you may take the dressing off later today. Recommendations Call your doctor if: * Trouble breathing * Continuous vomiting for more than 24 hours * Temperature above 101 degrees * Severe abdominal pain or bloating * Pain not relieved by pain medicine ordered * There is increased drainage or redness from any incision * A large amount of rectal bleeding greater than 2-3 tablespoons. (If you had a polyp/s removed or have hemorrhoids, a small amount of blood - from the rectum is to be expected.) * You have any unanswered questions or concerns. IN THE EVENT OF A SERIOUS EMERGENCY, GO TO THE NEAREST EMERGENCY ROOM Your discharge instructions were prepared by provider Vaughn Garcia. Patient Instructions Signature Page Caren Stoner Patient (or Guardian) Signature/Date: I have read and understand the instructions given to me by my caregivers. Caregiver/RN/Doctor Signature/Date: The above-named patient and/or guardian has received patient instructions on this date. + Original Patient Signature Page (only) stays with chart. Please make copy for patient.
[2018-01-12 14:51] VITALS: BP 137/97; PULSE 73; O2SAT 95
--- NOTE | 2018-01-12 15:00 | GI REPORT ---
Procedure Date: 01/12/2018 1:41 PM Procedure: Colonoscopy Indications: Screening for colorectal malignant neoplasm Medicines: Monitored Anesthesia Care Complications: No immediate complications. Estimated Blood Loss: Estimated blood loss: none. Procedure: Pre-Anesthesia Assessment: - Prior to the procedure, a History and Physical was performed, and patient medications and allergies were reviewed. The patient's tolerance of previous anesthesia was also reviewed. The risks and benefits of the procedure and the sedation options and risks were discussed with the patient. All questions were answered, and informed consent was obtained. Prior Anticoagulants: The patient has taken aspirin, last dose was 1 day prior to procedure. ASA Grade Assessment: III - A patient with severe systemic disease. After reviewing the risks and benefits, the patient was deemed in satisfactory condition to undergo the procedure. After I obtained informed consent, the scope was passed under direct vision. Throughout the procedure, the patient's blood pressure, pulse, and oxygen saturations were monitored continuously. The scope was introduced through the anus and advanced to the terminal ileum. The colonoscopy was performed without difficulty. The patient tolerated the procedure well. The quality of the bowel preparation was good. The terminal ileum, ileocecal valve, appendiceal orifice, and rectum were photographed. Findings: The perianal and digital rectal examinations were normal. Non-bleeding internal hemorrhoids were found during retroflexion. The hemorrhoids were small. Impression: - Non-bleeding internal hemorrhoids. - No specimens collected. Recommendation: - Resume previous diet. - Continue present medications. - Repeat colonoscopy in 10 years for surveillance. - Return to primary care physician as previously scheduled. Vaughn Garcia DO 01/12/2018 2:59:57 PM This report has been signed electronically. Note Initiated On: 01/12/2018 1:41 PM I attest to the content of the Intraoperative Record and orders documented therein, exceptions below
--- NOTE | 2018-01-12 15:30 | Anesthesiology Progress Note ---
Anesthesia Post Op Note Date & Time Jan 12, 2018 at 15:30 Vital Signs Pain Intensity: 0 Vital Signs Past 12 Hours Date Time Temp Pulse Resp B/P (MAP) Pulse Ox O2 Delivery O2 Flow Rate FiO2 01/12/18 14:51 73 16 137/97 (110) 95 Room Air 01/12/18 14:36 68 16 133/81 (98) 94 Room Air 01/12/18 14:21 80 16 129/86 (100) 99 Room Air 01/12/18 13:46 36.5 84 18 126/85 (99) 94 Room Air Notes Mental Status: alert / awake / arousable, participated in evaluation Pt Amnestic to Procedure: Yes Nausea / Vomiting: adequately controlled Pain: adequately controlled Airway Patency, RR, SpO2: stable & adequate BP & HR: stable & adequate Hydration State: stable & adequate Anesthetic Complications: no major complications apparent
== END | disposition home or self-care (01) ==
LOC: C.GI 12:45
PROVIDERS: ATTEND Internal Medicine
DX: Z12.11 Encounter for screening for malignant neoplasm of colon (principal); K64.8 Other hemorrhoids; G47.33 Obstructive sleep apnea (adult) (pediatric); F41.9 Anxiety disorder, unspecified; Z90.89 Acquired absence of other organs; Z98.51 Tubal ligation status; Z90.49 Acquired absence of other specified parts of digestive tract; Z98.890 Other specified postprocedural states; E66.9 Obesity, unspecified; Z68.42 Body mass index [BMI] 45.0-49.9, adult; Z79.82 Long term (current) use of aspirin; Z79.899 Other long term (current) drug therapy; Z88.1 Allergy status to other antibiotic agents; Z88.2 Allergy status to sulfonamides; Z88.8 Allergy status to other drugs, medicaments and biological substances; Z87.891 Personal history of nicotine dependence; Z86.711 Personal history of pulmonary embolism; Z83.71 Family history of colonic polyps

== ENCOUNTER → 2018-05-22 | Outpatient (CLI) | payer BC ==
[~2018-05-22] MED LIST changes: -LIDOCAINE HCL 2% 2 ML VIAL (20MG/ML) ONE; +OXYC-737 PO; -OXYC1TAB3 PO; -PROPOFOL IV EMULSION 10 MG/ML 20 ML VIAL IV ONE; -SODIUM CHLORIDE 0.9% 500ML 500 ML IV ONE
[2018-05-22 14:01] LABS: ALBUMIN 3.4 gm/dl (3.4-5.0); ALKALINE PHOSPHATASE 106 U/L (45-117); ALT/SGPT 21 U/L (12-78); AST/SGOT 13 U/L (15-37); BLOOD UREA NITROGEN 13 mg/dl (7-18); CALCIUM 9.1 mg/dl (8.5-10.1); CARBON DIOXIDE 25 mmol/L (21-32); CHOLESTEROL 193 mg/dl (0-200); CREATININE 0.96 mg/dl (0.60-1.20); GLUCOSE 106 mg/dl (70-99); LDL CHOLESTEROL CALCULATED 109 mg/dl; POTASSIUM 3.7 mmol/L (3.5-5.1); SODIUM 142 mmol/L (136-145); TOTAL PROTEIN 7.2 gm/dl (6.4-8.2)
== END | disposition home or self-care (01) ==
LOC: C.LABPVFM 09:53
PROVIDERS: ATTEND Family Medicine
DX: I10 Essential (primary) hypertension (principal); E78.5 Hyperlipidemia, unspecified; R73.9 Hyperglycemia, unspecified; B37.2 Candidiasis of skin and nail; R51 Headache